=== PATIENT | female | born 2000 | race Caucasian/White ===

== ENCOUNTER → 2022-08-28 08:45 | Outpatient (BNVA) | payer OTHER, SELFPAY | PROVIDERS: Family Provider Pediatrics Adolescent Medicine; Visit Provider Podiatrist Foot & Ankle Surgery | DX: M24.075 Loose body in left toe joint(s) (principal); M20.12 Hallux valgus (acquired), left foot; M21.611 Bunion of right foot | CPT/HCPCS: 73630 ==

== ENCOUNTER 2022-09-05 11:52 | Day surgery (SDC) | payer OTHER, SELFPAY ==
[2022-09-04 12:52] VITALS: BMI 22.1
[2022-09-05] VITALS (10 sets, daily range): BP systolic 80–140; BP diastolic 46–88; PULSE 70–131; RESP 13–20; TEMP 36.4–37.2; O2SAT 92–100
--- NOTE | 2022-09-05 | SCC_ITS ---
Procedure done: 1. Left first metatarsophalangeal joint arthrotomy 2. Left first metatarsal phalangeal joint synovectomy 18 seconds of fluoroscopic guidance, for a cumulative dose of 0.05 mGy, was provided to Dr. Antoine by the radiology department. C-arm images of the LEFT foot were saved for the patient's permanent record. [facility]
--- NOTE | 2022-09-05 | XR_ITS ---
WS: [id number] INTRAOPERATIVE TECHNIQUE: 6 Spot fluoroscopic images for intraoperative purposes. FLUOROSCOPY TIME: 18 seconds CLINICAL INFORMATION: left mpj arthrotomy COMPARISON: None. FINDINGS: LEFT 1st MTP arthrotomy and synovectomy. Localization marker projected over the head of the 1st metat arsal. XR/XR foot LT 2V [id number] IMPRESSION: Images obtained for intraoperative purposes.
[2022-09-05 12:28] LABS: OR HCG Qualitative Urine Negative (Negative)
[2022-09-05] MEDS: sodium chloride 0.9% 1,000 ML 30 ML IV (12:37)
[2022-09-05] MEDS: CELEcoxib 200 mg Capsule 400 MG PO (12:38)
[2022-09-05] MEDS: gabapentin 300 mg Capsule PO (12:38)
--- NOTE | 2022-09-05 12:39 | ANES.PREANE2 ---
Pre-Anesthetic Assessment Height/Weight: Height 1.57 m Weight 54.885 kg Temp Pulse Resp BP Pulse Ox O2 Del Method 98.9 F 125 H 16 140/88 99 09/05/22 12:21 09/05/22 12:21 09/05/22 12:21 09/05/22 12:21 09/05/22 12:21 09/05/22 12:21 Preop Diagnosis: Left 1st metatarsophalangeal joint foreign body Operation Date: 09/05/22 13:30 Proposed Procedures p Left 1st metatarsophalangeal joint arthrotomy with removal of loose osseous body CPT 28631,M24.075,M79.672(Left) - Kamron Antoine DPM Familial anesthetic complications: None Was Beta Calderon taken within 24 hours: N/A Was Clonidine taken within 24 hours: N/A Last intake: Intake Last Liquid Date 09/04/22 Last Liquid Time 20:00 Last Solid Date 09/04/22 Last Solid Time 20:00 Social No alcohol and No tobacco Exam alert, oriented x 3, clear to auscultation bilaterally and regular rate & rhythm Airway Mallampati: Class II Dentition: full Pulmonary None reported CV/HEM None reported None reported Hepatic None reported GI None reported Metabolic None reported Musc/skel None reported Neuropsych None reported Anesthetic Plan ASA status: 1 Anesthesia: General Risk of > 500 ml blood loss (7ml/kg in children): No Medications/Allergies Home Medications Medication Instructions Recorded Confirmed Last Taken Type amoxicillin 500 mg capsule 500 mg PO BID 08/28/22 08/28/22 Unknown History Allergies Allergy/AdvReac Type Severity Reaction Status Date / Time No Known Allergies Allergy Verified 08/28/22 08:51 Current Medications Generic Name Dose Route Start Last Admin Trade Name Freq PRN Reason Stop Dose Admin Sodium Chloride 1,000 mls @ 30 mls/hr 09/05/22 12:15 09/05/22 12:37 Sodium Chloride 0.9% IV 09/06/22 12:14 30 mls/hr .Q24H TIMOTHY Administration PFSH Anesthesia Family History (Updated 08/28/22 @ 08:53 by Shanthi Thompson LPN) Other Cancer Hypertension Social History (Updated 08/28/22 @ 08:53 by Shanthi Thompson LPN) Smoking and tobacco status: never smoked Second hand smoke exposure: No Alcohol intake: current Alcohol intake frequency: holidays/special occasions only Data Anesthesia Cardiac Studies: No Data to Display
--- NOTE | 2022-09-05 13:43 | W.PM.OPSUD ---
Surgery/Procedure H&P Update DATE OF PROCEDURE: September 05, 2022 DATE H&P PERFORMED: 08/28/22 CHANGES TO PREVIOUS DOCUMENTATION: No changes to previous documentation PREOP DIAGNOSIS: Left 1st metatarsophalangeal joint foreign body PRIMARY INDICATION FOR PROCEDURE: Left 1st metatarsophalangeal joint osseous body PLANNED PROCEDURE: Operation Date: 09/05/22 13:30 Proposed Procedures p Left 1st metatarsophalangeal joint arthrotomy with removal of loose osseous body CPT 79466,M24.075,M79.672(Left) - Kamron Antoine DPM
[2022-09-05] MEDS: ceFAZolin 2,000 MG in sodium chloride 0.9% (plus) 50 ML 100 MG IV (14:05)
--- NOTE | 2022-09-05 15:14 | ANE.PACU2 ---
Inpatient post-anesthesia follow up: Airway intact: Yes Vital signs: Temperature 98.4 F Pulse Rate 72 Respiratory Rate 20 Blood Pressure 80/46 Pulse Oximetry 96 Oxygen Delivery Me thod Simple Mask Oxygen Flow Rate 6 Fraction of Inspir ed Oxygen Hydration adequate: Yes Nausea and vomiting: No Pain level: 1 Mental status: Baseline
--- NOTE | 2022-09-05 20:37 | PM.OP ---
Operative Report Date of procedure: September 05, 2022 Pre-op diagnosis: Preop Diagnosis Left 1st metatarsophalangeal joint foreign body Post-op diagnosis: Same Post-op findings: Left foot first metatarsophalangeal joint with synovial fluid was noted to be milky white with appearance of calcium crystallization within the joint capsule. No evidence or signs of infection. No erosive changes to the first metatarsophalangeal joint visualized. Procedure done: 1. Left first metatarsophalangeal joint arthrotomy 2. Left first metatarsal phalangeal joint synovectomy Specimens removed/disposition: Left first metatarsophalangeal joint deep soft tissue sample sent to pathology. Cultures of milky white synovial fluid sent to micro for ID and sensitivity Pathology: Left first metatarsophalangeal joint deep soft tissue Surgeon: Dr. Kamron Antoine D.P.M. Estimated blood loss: Less than 5 cc 25 minutes Complications: None Findings: See above Brief History: Patient has history of left first metatarsal phalangeal joint pain which has been increasing over the course the past couple months. It is on the medial aspect of her first metatarsal head. Preoperative radiographs revealed what appeared to be intra-articular osseous bodies medial to the first metatarsal head. Procedure: Patient is a 22-year-old female that has a history of [ ]. The patient has had the aforementioned chief complaint for some time. Conservative treatment measures have been attempted and the patient has opted for surgical intervention at thistime. A lengthy discussion regarding the procedure, including risks and complications has been had with the patient and is noted in the recent clinic note. Written and verbal consent have been obtained. All patient questions have been answered to the patient?ssatisfaction. No written or verbal guarantees have been given or implied. The patient has been NPO since midnight. The history has been reviewed and the history and physical is current. The signed consent was confirmed and placed in the patient chart. Patient imaging has been reviewed and is consistent with the diagnosis. Under mild sedation, the patient was brought into the operating room and placed on the table in the supine position. IV antibiotics were given by the anesthesia team as preoperative surgical prophylaxis. General sedation was then performed by the anesthesia team. A pneumatic tourniquet was then placed about the left ankle. The operative extremity was then prepped and draped in the usual fashion. The extremity was then elevated and exsanguinated before the tourniquet was inflated to 250 mmHg. After inflation, the following procedure was then performed. A Delgado block was performed to the left foot in standard fashion using 20 cc of 0.5% Marcaine plain. Attention was directed to the left foot where medial eminence of the first metatarsal head was noted. C-arm images were taken in splint to confirm positioning of the osseous bodies. A 3 cm incision was made straight medial overlying the osseous bodies. Dissection was carried down through subcutaneous and superficial fascia to the first metatarsal phalangeal joint capsule. The capsule was incised with a #15 blade. Upon incising the capsule there was an immediate release of a milky white with slight yellowish discoloration from the joint. Aerobic and anaerobic cultures were taken of the fluid at this point of the case. The joint capsule was opened up further to expose the medial aspect of the first metatarsal head. The joint capsule was noted to be mildly thickened with small granular like substance white in coloration attached to the joint capsule. A small wedge of the joint capsule including this material was excised and passed from the operative field to be sent a specimen to pathology. Attention was directed to the medial aspect of the first metatarsal head to assess for the ossicles to be excised. It was noted this point that they were not there. C-arm images were taken which revealed that they were no longer present. The fluid extravasation from the first metatarsophalangeal joint was the radiopaque substance that was mistaken for osseous bodies. The site was irrigated with copious amounts of sterile saline. The first metatarsal phalangeal joint was noted to be intact with no erosive changes no discoloration. No other masses were noted. After inspection of the tissues and joint attention was directed to closure. Deep tissue was closed including capsular closure with 3-0 Vicryl followed by subcuticular closure with 4-0 Vicryl and skin closure with 4-0 Monocryl in running subcuticular fashion and augmented with Steri-Strips. The tourniquet was let down good hyperemic response was noted to all digits of the left foot. The incision was dressed with Adaptic 4 x 4 gauze Kerlix and Denny bandage. The patient was placed in a postop shoe. The patient tolerated the procedure and anesthesia well and without complication. The patient was transported from the operating room to the recovery room with vital signs stable and vascular status intact to all digits of the left foot. The patient was given both written and verbal instructions to remain weightbearing as tolerated to the operative extremity, to keep dressings/splint clean, dry and intact and to take pain medication as directed. The patient will follow-up in the outpatient setting at their scheduled appointment. The patient was discharged with my personal number and was instructed to call if any questions or issues should arise. They were discharged home once anesthesia criteria was met.
== END 2022-09-05 16:10 | disposition home or self-care (01) ==
PROVIDERS: PCP Nurse Practitioner Family; Visit Provider Podiatrist Foot & Ankle Surgery
PROC: (CPT 28740; principal; 2022-09-05 13:30)
DX: M24.075 Loose body in left toe joint(s) (principal); M79.672 Pain in left foot
CPT/HCPCS: 28072; 73620; 76000; 81025; 84703; 87070; 87075; 87205; 88307; J1100; J1885; J2250; J2405; J2704; J3010; J3490; J7030

== ENCOUNTER → 2022-09-11 11:22 | Outpatient (BNVA) | payer OTHER, SELFPAY | PROVIDERS: PCP Nurse Practitioner Family; Visit Provider Podiatrist Foot & Ankle Surgery | DX: M24.075 Loose body in left toe joint(s) (principal); M20.12 Hallux valgus (acquired), left foot; E83.52 Hypercalcemia | CPT/HCPCS: 36415; 73630; 82330 ==